=== PATIENT | male | born 1985 | race Caucasian/White ===

== ENCOUNTER 2021-01-02 06:55 | Emergency (ER) | payer BC, MEDICAID ==
[~2021-01-02] VITALS: Ht 180.3 cm; Wt 71.9 kg
[2021-01-02 06:58] VITALS: BP 125/76
[2021-01-02] MEDS ORDERED: L.E.T SOLUTION TP ONE (07:30)
[2021-01-02] MEDS ORDERED: LIDOCAINE-MPF 1%, 5ML INFIL ONE (07:30)
== END 2021-01-02 07:41 | disposition home or self-care (01) ==
LOC: ED 07:35
DX: K02.9 Dental caries, unspecified (principal); Z87.891 Personal history of nicotine dependence
CPT/HCPCS: 99283

== ENCOUNTER 2021-03-10 11:43 | Emergency (ER) | payer BC ==
[~2021-03-10] VITALS: Ht 180.3 cm; Wt 69.1 kg
--- NOTE | 2021-03-10 12:04 | NUR ---
PT here with c/o night sweats, cold sweats, n/v, and fatigue x1 week. Had Moderna 1st dose vaccine on Wednesday.
[2021-03-10] MEDS ORDERED: ONDANSETRON ODT 8 MG ONE (12:58)
[2021-03-10 13:03] VITALS: BP 130/79
--- NOTE | 2021-03-10 13:03 | NUR ---
PT SITTING UP ON GURNEY AWAKE & CALM, RESPONDS APPROP TO STAFF, NAD- MEDICATED PER EMAR FOR NAUSEA, COMFORT MEASURES PROVIDED, CALL LIGHT WITHIN REACH.
[2021-03-10 13:15] LABS: BASOPHILS % (AUTO) 1 % (0-1); EOSINOPHILS % (AUTO) 2 % (1-7); LYMPHOCYTES % (AUTO) 19 % (22-44); MEAN CORPUSCULAR HEMOGLOBIN 30.9 pg (27.5-34.5); MEAN CORPUSCULAR HGB CONC 34.6 g/dL (33.2-36.2); MEAN PLATELET VOLUME 8.6 fL (7.4-10.4); MONOCYTES % (AUTO) 6 % (2-9); NEUTROPHILS % (AUTO) 71 % (42-75); PLATELET COUNT 239 x10^3/uL (130-400); RED BLOOD COUNT 5.47 x10^6/uL (4.38-5.82)
[2021-03-10 13:24] LABS: CHLORIDE 109 mmol/L (98-107)
[2021-03-10] MEDS ORDERED: ONDANSETRON ODT 8 MG PO ONE (13:30)
[2021-03-10 13:31] LABS: ALANINE AMINOTRANSFERASE 25 U/L (12-78); ALBUMIN 3.7 g/dL (3.4-5.0); ALKALINE PHOSPHATASE 94 U/L (45-117); ANION GAP 5 mmol/L (5-15); BILIRUBIN,TOTAL 0.5 mg/dL (0.2-1.0); CREATININE 1.04 mg/dL (0.7-1.3); TOTAL PROTEIN 7.5 g/dL (6.4-8.2)
--- NOTE | 2021-03-10 13:44 | NUR ---
PT TOLERATED PO FLUIDS WITHOUT NV- ERP AWARE.
--- NOTE | 2021-03-10 14:20 | NUR ---
Report given to Sharon DAMIAN
== END 2021-03-10 12:27 ==
LOC: ED 11:49
DX: R11.2 Nausea with vomiting, unspecified (principal); R19.7 Diarrhea, unspecified; R94.31 Abnormal electrocardiogram [ECG] [EKG]
CPT/HCPCS: 36415; 80053; 85025; 93005; 99284; Q0162